=== PATIENT | male | born 1995 | race African-American/Black ===

== ENCOUNTER 2016-05-30 13:26 | Emergency (ER) | payer SELFPAY ==
[~2016-05-30] VITALS: Ht 175.3 cm; Wt 72.6 kg
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
[2016-05-30] MEDS ORDERED: NKM (14:24)
[2016-05-30] MEDS ORDERED: IBUPROFEN600 MG ORAL (14:57)
[2016-05-30 15:27] VITALS: BP 139/65
[2016-05-30 15:31] VITALS: BP 139/65
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
== END 2016-05-30 15:31 | disposition home or self-care (01) ==
LOC: EMR 13:59
DX: S20.219A Contusion of unspecified front wall of thorax, initial encounter (principal); V47.6XXA Car passenger injured in collision with fixed or stationary object in traffic accident, initial encounter; Y92.411 Interstate highway as the place of occurrence of the external cause; Y99.8 Other external cause status
CPT/HCPCS: 71020; 99283